=== PATIENT | female | born 2000 | race Caucasian/White ===

== ENCOUNTER 2018-04-27 20:12 | Inpatient (IN) | payer BC ==
[2018-04-27] MEDS ORDERED: NS 0.9% 1000 ML* 1,000 ML IV ONE (20:25)
--- NOTE | 2018-04-27 20:43 | ED ---
Substance Abuse/Use - HPI Summary HPI Summary: 18 year old F presenting to [facility] accompanied by female roommate s/p taking Advil 200 mg x20 19:00 today. Symptoms aggravated by school work and stress. Symptoms alleviated by nothing. She feels hot, confused, dizzy, fatigued, and numb. When asked if she is currently suicidal, patient explains that her "emotions are all over so it could be possible." Patient attends [employer] and is a sophomore. She considered withdrawing from school this semester due to having anxiety attacks every week from stress. She consistently sees a therapist at but is not on psychiatric medication. Patient has hx anxiety, hx SI, hx cutting. LNMP was 1 week ago. - History Of Current Complaint Chief Complaint: EDOverdose Stated Complaint: POSS OVERDOSE Time Seen by Provider: 04/27/18 20:27 Hx Obtained From: Patient Hx Last Menstrual Period: 04/20/18 ?: No Ingestion History: Type/Name Of Drug - Advil, Amount Ingested - 200 mg x20 Overdose Characteristics: Oral Aggravating Factor(s): Other - stress and schoolwork Alleviating Factor(s): Nothing Associated Signs And Symptoms: Other: - She feels hot, confused, dizzy, fatigued, and numb. When asked if she is currently suicidal, patient explains that her "emotions are all over so it could be possible." - Allergies/Home Medications Allergies/Adverse Reactions: Allergies Allergy/AdvReac Type Severity Reaction Status Date / Time No Known Allergies Allergy Verified 04/27/18 20:22 PMH/Surg Hx/FS Hx/Imm Hx Previously Healthy: No Respiratory History: Denies: Hx Asthma Psychiatric History: Reports: Hx Anxiety, Other Psychiatric Issues/Disorders - Hx non-suicidal self injury particularly cutting - Surgical History Surgery Procedure, Year, and Place: None Infectious Disease History: No Infectious Disease History: Denies: Traveled Outside the [place] in Last 30 Days - Family History Known Family History: Negative: Blood Disorder - Social History Alcohol Use: None Hx Substance Use: No Substance Use Type: Reports: None Hx Tobacco Use: No Smoking Status (MU): Never Smoked Tobacco Review of Systems Positive: Other - She feels hot, confused, dizzy, fatigued, and numb Positive: Other - When asked if she is currently suicidal, patient explains that her "emotions are all over so it could be possible." All Other Systems Reviewed And Are Negative: Yes Physical Exam - Summary Physical Exam Summary: Appearance: Well-appearing, Well-nourished, lying in bed comfortably Skin: Warm, dry, no obvious rash Eyes: sclera anicteric, no conjunctival pallor ENT: mucous membranes moist, pharynx appears normal Neck: Supple, nontender Respiratory: Clear to auscultation, no signs of respiratory distress Cardiovascular: Normal S1, S2. No murmurs. Normal distal pulses in tibial and radial bilaterally. Abdomen: Soft, nontender, normal active bowel sounds present Musculoskeletal: Normal, Strength/ROM Intact Neurological: A&Ox3, awake and alert, mentation is normal, speech is fluent and appropriate Psychiatric: affect is normal, does not appear anxious or depressed Triage Information Reviewed: Yes Vital Signs On Initial Exam: Initial Vitals Temp Pulse Resp BP Pulse Ox 98.6 F 92 16 144/89 99 04/27/18 20:17 04/27/18 20:17 04/27/18 20:17 04/27/18 20:17 04/27/18 20:17 Vital Signs Reviewed: Yes Diagnostics - Vital Signs Vital Signs Temp Pulse Resp BP Pulse Ox 04/27/18 20:17 98.6 F 92 16 144/89 99 - Laboratory Result Diagrams: 04/27/18 21:14 04/27/18 21:15 Lab Statement: Any lab studies that have been ordered have been reviewed, and results considered in the medical decision making process. - EKG 2056 Cardiac Rate: NL - 81 BPM EKG Rhythm: Sinus Rhythm Summary of EKG Findings: NSR at 81 BPM, P waves, QRS complex, and T waves are within normal limits, T waves and intervals are normal, no ischemic changes. This is a normal EKG Course/Dx - Course Course Of Treatment: 18 year old F presenting to [facility] accompanied by female roommate s/p taking Advil 200 mg x20 19:00 today. Patient notes recent stress from school work has been building up, making her feel suicidal. Patient given mental health evaluation, after which Dr. Su psychiatry feels that patient should be admitted. Patient is agreeable with admission plan per mental health level vial inspector. Patient will be admitted to psychiatric facility at [facility] - Diagnoses Provider Diagnoses: Depression, Suicide attempt Discharge - Sign-Out/Discharge Documenting (check all that apply): Patient Departure - Admit - Discharge Plan Condition: Stable Disposition: [facility]CHIATRIC FACILITY[facility] Referrals: No Primary Care Phys,NOPCP [Primary Care Provider] - - Attestation Statements Document Initiated by Scribe: Yes Documenting Scribe: Eliane Cross Provider For Whom Scribe is Documenting (Include Credential): Ortiz Santana MD Scribe Attestation: Eliane Tristan, scribed for Ortiz Santana MD on 04/28/18 at 0008. Status of Scribe Document: Ready
[2018-04-27 21:23] LABS: ABS Basophils 0 10^3/ul (0-0.2); ABS Eosinophils 0.1 10^3/ul (0-0.6); ABS Lymphocytes 1.7 10^3/ul (1.0-4.8); ABS Monocytes 0.9 10^3/ul (0-0.8); ABS Neutrophils 11.7 10^3/ul (1.5-7.7); ABS Nucleated RBC 0 10^3/ul; Eosinophil % 0.8 %; Hematocrit 40 % (35-47); Hemoglobin 13.5 g/dl (12.0-16.0); Lymphocyte % 11.6 %; Mean Corpuscular HGB Conc 34 g/dl (31-36); Mean Corpuscular Hemoglobin 34 pg (27-31); Mean Corpuscular Volume 98 fL (80-97); Mean Platelet Volume 7.8 fL (7.4-10.4); Nucleated Red Blood Cells % 0; Platelet Count 250 10^3/ul (150-450); Red Blood Count 4.04 10^6/ul (4.00-5.40); Red Cell Distribution Width 12 % (10.5-15); White Blood Count 14.4 10^3/ul (3.5-10.8)
[2018-04-27 21:35] LABS: Urine Appearance Cloudy; Urine Bacteria 2+ (Absent); Urine Bilirubin Negative (Negative); Urine Blood 1+ (Negative); Urine Color Straw; Urine Glucose Negative (Negative); Urine Ketones Negative (Negative); Urine Nitrite Negative (Negative); Urine Protein Negative (Negative); Urine Red Blood Cell 1+(3-5/hpf) (Absent); Urine Specific Gravity 1.004 (1.010-1.030); Urine Urobilinogen Negative (Negative); Urine White Blood Cell 3+(>20/hpf) (Absent)
[2018-04-27 21:39] LABS: Barbiturates Urine Screen None Detected (None Detect); Benzodiazepine Urine Screen None Detected (None Detect); Urine Cannabinoids Screen None Detected (None Detect)
[2018-04-27 21:40] LABS: ALT 8 U/L (7-52); AST 11 U/L (13-39); Albumin 4.3 g/dL (3.2-5.2); Alkaline Phosphatase 79 U/L (34-104); Anion Gap 8 mmol/L (2-11); BUN/Creatinine Ratio 13.2 (8-20); Blood Urea Nitrogen 9 mg/dL (6-24); CO2 Carbon Dioxide 29 mmol/L (22-32); Calcium 9.4 mg/dL (8.6-10.3); Chloride 104 mmol/L (101-111); EGFR Non-African American 110.3 (>60); Globulin 2.2 g/dL (2-4); Glucose 101 mg/dL (70-100); Potassium 3.7 mmol/L (3.5-5.0); Sodium 141 mmol/L (135-145); Total Protein 6.5 g/dL (6.4-8.9)
[2018-04-27 21:46] LABS: HCG Pregnancy < 0.60 mIU/mL
[2018-04-27 21:47] LABS: Acetaminophen < 15 mcg/mL; Alcohol < 10 mg/dL (<10); Salicylate < 2.50 mg/dL (<30)
[2018-04-28] MEDS ORDERED: Acetaminophen TAB* 325 MG PO PRN (02:29)
[2018-04-28] MEDS ORDERED: Al Hydrox/Mg Hydrox/Simet LIQ* 30 ML UDC PO PRN (02:29)
[2018-04-28] MEDS: Vitamin THERAPEUTIC TAB PO SCH (10:07)
[2018-04-28] MEDS ORDERED: GuaiFENesin DM* 5 ML UDC PO PRN (16:56)
--- NOTE | 2018-04-28 21:21 | HP ---
PSYCHIATRIC ADMISSION: DATE OF ADMISSION: 04/28/18 JUSTIFICATION FOR ADMISSION: The patient is in need of 24-hour supervision and care secondary to anthony cidal ideations with an attempt to end her life via overdose. CHIEF COMPLAINT: "I was going to check myself in anyway even before I did the overdose." HISTORY OF PRESENT ILLNESS: The patient is a 18-year-old single white female, who is a sophomore at [employer], who was brought to the emergency room by her roommate following an intentional overdo se on approximately 20 tablets of Advil Migraine, which includes 200 mg of ibuprofen, in an attempt t o end her life. The patient reported to ER staff that she feels incompetent in areas such as school and communication with others. She reports intrusive thoughts of self-hatred, saying "I just feel ou t of control with my emotions and my impulses, I'm tired of being subjected to this emotional pain an d I don't have a way to cope with it effectively." Although she denied any continued suicidal ideati on in our emergency room, she appeared to be depressed, fatigued, and unsafe, and for this reason, irene oliva was encouraged to accept a voluntary admission, which she did. When I meet with her, she indicates that she took the overdose on the evening prior to admission. She was feeling extreme anxiety in par ticular related to her schoolwork, saying that she is having weekly panic attacks. She has tried to finish the semester and was encouraged to do so by her stepbrother, who recently visited from her [facility] area. She feels ashamed like she has let her family down. The patient is doing estevan quately academically, although she does feel that she could be doing better were her anxiety and depr ession under better control. Other stressors include her lack of relationships and difficulty making friends due to social anxiety and poor self-esteem. She tends to worry a great deal about things li ke schoolwork and often feels uncomfortable with others. She states that she has had passive suicida l ideations almost every day for several weeks, but had no plans or actual intentions of harming hers elf until the overdose occurred last night. Symptomatically, she is denying any difficulty sleeping; however, she does endorse anhedonia, guilt, poor energy, concentration problems, appetite disturbance , psychomotor retardation, and passive suicidal ideations. She denies any psychotic or manic experie nces. PAST PSYCHIATRIC HISTORY: The patient denies ever being psychiatrically hospitalized. She does stat e that she has been in therapy several times both in her [facility] as well as at [facility] through the [facility]. Currently, on campus, she sees a therapist, named Paul Ayala. The patient was started in the spring on a trial of sertraline by Dr. Stroud at [facility]. This was titrated up to 100 mg and she was on it a total of 6 months, but did not feel t hat she got much benefit and her sikh conservative father encouraged her to discontinue it. She denies any history of abuse or neglect growing up. She denies any history of traumatic brain injury . SUBSTANCE ABUSE HISTORY: Significant for social alcohol and occasional marijuana, although she denie s any history of other illicit drugs and denies use of tobacco products. PAST MEDICAL HISTORY: Noncontributory. ALLERGIES: She has no known drug allergies. FAMILY HISTORY: Significant for a mother that has been diagnosed with schizophrenia, a maternal half -sister with major depressive disorder, a paternal grandmother with anxiety, and a paternal great-unc le who recently of suicide. SOCIAL HISTORY: The patient was born and raised in the suburb of [place]. Her parents were janell clark together and she was raised mostly by her father and her stepmother, although she had fairly frequent visitation with her mother. She does have a half-sister on her mother's side who is in her early 30s as well as a stepbrother through her step-mom with whom she is quite close. The patient i s a high-school graduate and is currently a sophomore at [employer] studying both Mongolian and psy chology and her grades are mostly B's and A's. Her hobbies include arts, crafts, and running. Curre ntly, she is single, although she is sexually active with a male partner. She denies any history of sexually transmitted diseases. The patient is not sikh indicating that she was raised Yazidism, but has left that sukumar. She is denying any significant legal history. REVIEW OF SYSTEMS: The patient states that she has a recent upper respiratory tract infection and e is requesting cough or cold medicine. Other than this, she denies headache or double vision. She denies sore throat, cough, chest pain, difficulty breathing. Denies abdominal pain, nausea, vomiting , diarrhea, or constipation. Denies difficulty ambulating, enlarged lymph nodes, fevers, changes in weight. PHYSICAL EXAMINATION VITAL SIGNS: Blood pressure 119/76, heart rate 83, respiratory rate 16, temperature is 98.5 degrees Fahrenheit, oxygen saturations are 99% on room air. HEENT: Head is normocephalic, atraumatic. NECK: Supple. CHEST: Clear to auscultation bilaterally. CARDIAC: Reveals normal heart sounds. ABDOMEN: Soft and nontender. MUSCULOSKELETAL: Reveals no sign of edema. NEUROLOGICAL: She is grossly intact with no focal deficits. SKIN: Warm and dry. MENTAL STATUS EXAM: The patient is a young, somewhat slender white female with blondish hair, fair grooming. I note that she has a nose ring. She is clean and well groomed, dressed in a black T-eduardo t with a blue flannel over it and jeans on. She has a somewhat slouched posture. Speech is slow, but fluent. Mood is depressed with a constricted affect. Thought process is linear and goal directed. Thought content is significant for feeling upset about letting her family down. She denies current fong icidal or homicidal ideations. She denies auditory or visual hallucinations. Insight and judgment a re fair given her willingness to sign in to the hospital on a voluntary basis. Cognitively, she is a wake and alert with what would appear to be an average intellect. LABORATORY DATA: CBC reveals slightly elevated white blood cell count at 14.4. CMP reveals glucose s lightly elevated at 101. Beta hCG is negative. Urinalysis reveals 3+ leukocyte esterase, 3+ white b lood cells, 2+ bacteria. Urine drug screen is negative for all substances tested. DIAGNOSES: [place] I: Major depressive disorder, recurrent, severe, without psychotic features; genera lized anxiety disorder; rule out social anxiety disorder. [place] II: Rule out avoidant personality tra its. ASSESSMENT: The patient is a 18-year-old single white female, who is a sophomore at [employer], who was brought to the hospital by her roommate after it was discovered that she overdosed purposely on 20 tablets of Advil Migraine medicine in an attempt to harm herself. She does meet criteria for m ajor depressive disorder and generalized anxiety disorder and she is agreeable to a trial of medicati on and further inpatient treatment. PLAN: The patient is admitted to the adult behavioral health unit where she is placed on q.15-minute checks for her own safety. I note that she does have a urinary tract infection for which we will st art an empirical trial of Bactrim double strength twice daily. We will also start her on a trial of Effexor XR 37.5 mg every morning and titrate that to efficacy. We will be reaching out to [facility] to involve their crisis management services and it is uncertain at this time whether the patient will need accommodations to complete the semester versus taking a medical leave of absence. At any rate, while she is here, she is certainly encouraged to avail herself of all milieu activities includ ing individual and group psychotherapies. We will likely reach out to her family to see if they woul d be willing to be involved in her treatment. [id number]/[facility] #: [id number]
[2018-04-28] MEDS: Sulfamethox/Trimethoprim DS 800/160* TAB PO SCH (21:27)
[2018-04-28] MEDS: hydrOXYzine HCL TAB* 50 MG PO PRN (21:27)
[2018-04-29 07:38] LABS: HDL Cholesterol 40.5 mg/dL
[2018-04-29] MEDS: Venlafaxine EXT RELEASE CAP* 37.5 MG PO SCH (09:26)
[2018-04-29] MEDS: Sulfamethox/Trimethoprim DS 800/160* TAB PO SCH ×2 (09:26→21:21)
[2018-04-29] MEDS: Vitamin THERAPEUTIC TAB PO SCH (09:27)
[2018-04-29] MEDS: hydrOXYzine HCL TAB* 50 MG PO PRN (21:21)
[2018-04-30] MEDS: Venlafaxine EXT RELEASE CAP* 37.5 MG PO SCH (08:56)
[2018-04-30] MEDS: Vitamin THERAPEUTIC TAB PO SCH (08:56)
[2018-04-30] MEDS: Sulfamethox/Trimethoprim DS 800/160* TAB PO SCH ×2 (08:56→20:47)
--- NOTE | 2018-04-30 15:42 | PN ---
Subjective - Subjective Date of Service: 04/30/18 Service Type: 73001 Hosp care 15 min low complexity Subjective: Guevara complains of some mild fuzziness with venlafaxine, however, she states that she had a similar initial reaction to sertraline and tolerated it well after a little time on the medication, so she' not worried about how she'll do on Effexor. She reports that her father and step-mother have been more supportive than she anticipated. "They took it hard yesterday when I first called them but then my dad called back today and he said he wanted whatever was best for my health." The patient denies SI currently. She awaits meeting the unit psychosocial rehabilitation counselor so that she can request referral to [facility] [facility] [facility]'s Crisis Management service in order to straighten out the details of taking an anticipated medical leave of absence from school. She looking for a new therapist in the [place], [place] area, where she will return to live with her father. Objective - Appearance Appearance: Well Developed/Nourished Dysmorphic Features: No Hygiene: Normal Grooming: Well Kept - Behavior Psychomotor Activities: Normal Exhibits Abnormal Movement: No - Attitude and Relatedness Attitude and Relatedness: Cooperative Eye Contact: Fair - Speech Quality: Unpressured Latencies: Normal Quantity: Appropriate - Mood Patient's Decription of Mood: "Sad" - Affect Observed Affect: Constricted Affect Consistent with: Dysphoria - Thought Process Patient's Thought Process: Coherent Thought Content: No Passive Wish, No Suicidal Planning, No Homicidal Ideation, No Paranoid Ideation - Sensorium Experiencing Hallucinations: No, Sensorium is Clear Type of Hallucinations: Visual: No, Auditory: No, Command: No - Level of Consciousness Level of Consciousness: Alert Orientation: Yes Intact, Yes Orientated to Time, Yes Orientated to Place, Yes Orientated to Person - Impulse Control Impulse Control: Intact - Insight and Judgement Insight and Judgement: Good - Group Participation Particating in Group Activities: Yes - Medication Management Medication Management Adherence: Yes Assessment - Assessment Merits Inpatient Hospitalization: For Immediate Safety, For Stabilization Inpatient DSM-V Dx: F33.2 Clinical Impression: 18 y.o. single, white female sophomore at [employer] brought in voluntarily by a friend following an intentional, suicidal overdose on approximately 20 tablets of Advil migraine medicine. MHU: Problem List - Patient Problems (1) Major depressive disorder, recurrent severe without psychotic features Current Visit: Yes Status: Acute Priority: High Code(s): F33.2 - MAJOR DEPRESSV DISORDER, RECURRENT SEVERE W/O PSYCH FEATURES SNOMED Code(s): 21823014 Plan - Plan Treatment Plan: Name: GUEVARA ANTONIO Birthdate: 2000 [id number] We have started a trial of venlafaxine 37.5mg PO qam. Will increase this to 75mg starting tomorrow. Patient to work with [employer]. Continue inpatient treatment. Continued Medication Management: Start Medication Medications: Current Medications Acetaminophen (Tylenol Tab*) 650 mg PO Q4H PRN PRN Reason: PAIN or TEMP > 101 F Last Admin: 04/28/18 21:26 Dose: 650 mg Al Hydrox/Mg Hydrox/Simethicone (Maalox Plus*) 30 ml PO Q4H PRN PRN Reason: INDIGESTION Guaifenesin/Dextromethorphan (Robitussin Dm*) 10 ml PO Q6H PRN PRN Reason: COUGH Last Admin: 04/29/18 22:48 Dose: 10 ml Hydroxyzine HCl (Atarax Tab*) 50 mg PO Q6H PRN PRN Reason: ANXIETY Last Admin: 04/29/18 21:21 Dose: 50 mg Multivitamins (Theragran Tab*) 1 tab PO DAILY [facility] Last Admin: 04/30/18 08:56 Dose: 1 tab Trimethoprim/Sulfamethoxazole (Bactrim Ds 800/160 Tab*) 1 tab PO BID [facility] Last Admin: 04/30/18 08:56 Dose: 1 tab Venlafaxine HCl (Effexor Xr Cap*) 75 mg PO DAILY [facility] - Discharge Plan Discharge Plan: Inpatient Hospitalization Lab Results - Lab Results Lab Results: 04/27/18 04/27/18 04/27/18 21:14 21:14 21:14 WBC 14.4 H RBC 4.04 Hgb 13.5 Hct 40 MCV 98 H MCH 34 H MCHC 34 RDW 12 Plt Count 250 MPV 7.8 Neut % (Auto) 81.4 Lymph % (Auto) 11.6 [place] % (Auto) 6.0 Eos % (Auto) 0.8 Baso % (Auto) 0.2 Absolute Neuts (auto) 11.7 H Absolute Lymphs (auto) 1.7 Absolute Monos (auto) 0.9 H Absolute Eos (auto) 0.1 Absolute Basos (auto) 0 Absolute Nucleated RBC 0 Nucleated RBC % 0 Sodium Potassium Chloride Carbon Dioxide Anion Gap BUN Creatinine Est GFR ( Amer) Est GFR (Non-Af Amer) BUN/Creatinine Ratio Glucose Hemoglobin A1c Lactic Acid 1.5 Calcium Total Bilirubin AST ALT Alkaline Phosphatase Total Protein Albumin Globulin Albumin/Globulin Ratio Triglycerides Cholesterol LDL Cholesterol HDL Cholesterol Beta HCG, Quant Urine Color Straw Urine Appearance Cloudy Urine pH 7.0 Ur Specific [place] 1.004 L Urine Protein Negative Urine Ketones Negative Urine Blood 1+ A Urine Nitrate Negative Urine Bilirubin Negative Urine Urobilinogen Negative Ur Leukocyte Esterase 3+ A Urine WBC (Auto) 3+(>20/hpf) A Urine RBC (Auto) 1+(3-5/hpf) A Ur Squamous Epith Cells Present A Urine Bacteria 2+ A Urine Glucose Negative Salicylates Urine Opiates Screen Acetaminophen Ur Barbiturates Screen Ur Phencyclidine Scrn Ur Amphetamines Screen U Benzodiazepines Scrn Urine Cocaine Screen U Cannabinoids Screen Serum Alcohol 04/27/18 04/27/18 04/29/18 21:14 21:15 07:05 WBC RBC Hgb Hct MCV MCH MCHC RDW Plt Count MPV Neut % (Auto) Lymph % (Auto) [place] % (Auto) Eos % (Auto) Baso % (Auto) Absolute Neuts (auto) Absolute Lymphs (auto) Absolute Monos (auto) Absolute Eos (auto) Absolute Basos (auto) Absolute Nucleated RBC Nucleated RBC % Sodium 141 Potassium 3.7 Chloride 104 Carbon Dioxide 29 Anion Gap 8 BUN 9 Creatinine 0.68 Est GFR ( Amer) 133.5 Est GFR (Non-Af Amer) 110.3 BUN/Creatinine Ratio 13.2 Glucose 101 H Hemoglobin A1c Lactic Acid Calcium 9.4 Total Bilirubin 0.30 AST 11 L ALT 8 Alkaline Phosphatase 79 Total Protein 6.5 Albumin 4.3 Globulin 2.2 Albumin/Globulin Ratio 2.0 Triglycerides 147 Cholesterol 153 LDL Cholesterol 83 HDL Cholesterol 40.5 Beta HCG, Quant < 0.60 Urine Color Urine Appearance Urine pH Ur Specific [place] Urine Protein Urine Ketones Urine Blood Urine Nitrate Urine Bilirubin Urine Urobilinogen Ur Leukocyte Esterase Urine WBC (Auto) Urine RBC (Auto) Ur Squamous Epith Cells Urine Bacteria Urine Glucose Salicylates < 2.50 Urine Opiates Screen None detected Acetaminophen < 15 Ur Barbiturates Screen None detected Ur Phencyclidine Scrn None detected Ur Amphetamines Screen None detected U Benzodiazepines Scrn None detected Urine Cocaine Screen None detected U Cannabinoids Screen None detected Serum Alcohol < 10 04/29/18 07:05 WBC RBC Hgb Hct MCV MCH MCHC RDW Plt Count MPV Neut % (Auto) Lymph % (Auto) [place] % (Auto) Eos % (Auto) Baso % (Auto) Absolute Neuts (auto) Absolute Lymphs (auto) Absolute Monos (auto) Absolute Eos (auto) Absolute Basos (auto) Absolute Nucleated RBC Nucleated RBC % Sodium Potassium Chloride Carbon Dioxide Anion Gap BUN Creatinine Est GFR ( Amer) Est GFR (Non-Af Amer) BUN/Creatinine Ratio Glucose Hemoglobin A1c 4.6 Lactic Acid Calcium Total Bilirubin AST ALT Alkaline Phosphatase Total Protein Albumin Globulin Albumin/Globulin Ratio Triglycerides Cholesterol LDL Cholesterol HDL Cholesterol Beta HCG, Quant Urine Color Urine Appearance Urine pH Ur Specific [place] Urine Protein Urine Ketones Urine Blood Urine Nitrate Urine Bilirubin Urine Urobilinogen Ur Leukocyte Esterase Urine WBC (Auto) Urine RBC (Auto) Ur Squamous Epith Cells Urine Bacteria Urine Glucose Salicylates Urine Opiates Screen Acetaminophen Ur Barbiturates Screen Ur Phencyclidine Scrn Ur Amphetamines Screen U Benzodiazepines Scrn Urine Cocaine Screen U Cannabinoids Screen Serum Alcohol
[2018-05-01] MEDS: Venlafaxine EXT RELEASE CAP* 37.5 MG PO SCH (08:39)
[2018-05-01] MEDS: Sulfamethox/Trimethoprim DS 800/160* TAB PO SCH ×2 (08:39→21:02)
[2018-05-01] MEDS: Vitamin THERAPEUTIC TAB PO SCH (09:47)
[2018-05-01] MEDS ORDERED: Zolpidem TAB* 5 MG PO PRN (12:30)
--- NOTE | 2018-05-01 12:38 | PN ---
Subjective - Subjective Date of Service: 05/01/18 Service Type: 46497 Hosp care 25 min moderate complexity Subjective: Guevara discusses her social anxiety, which has limited her ability to make friends and build supports here in [place]. She denies SI today but still feels a little fuzzy from the venlafaxine. She is participating well in the groups and we note that she is not particularly avoidant of peers. "That's because I know I'll never see these people again." Objective - Appearance Appearance: Well Developed/Nourished Dysmorphic Features: No Hygiene: Normal Grooming: Well Kept - Behavior Psychomotor Activities: Normal Exhibits Abnormal Movement: No - Attitude and Relatedness Attitude and Relatedness: Cooperative Eye Contact: Fair - Speech Quality: Unpressured Latencies: Normal Quantity: Appropriate - Mood Patient's Decription of Mood: "Sad" - Affect Observed Affect: Constricted Affect Consistent with: Dysphoria - Thought Process Patient's Thought Process: Coherent Thought Content: No Passive Wish, No Suicidal Planning, No Homicidal Ideation, No Paranoid Ideation - Sensorium Experiencing Hallucinations: No, Sensorium is Clear Type of Hallucinations: Visual: No, Auditory: No, Command: No - Level of Consciousness Level of Consciousness: Alert Orientation: Yes Intact, Yes Orientated to Time, Yes Orientated to Place, Yes Orientated to Person - Impulse Control Impulse Control: Tenuous - Insight and Judgement Insight and Judgement: Fair - Group Participation Particating in Group Activities: Yes - Medication Management Medication Management Adherence: Yes Assessment - Assessment Merits Inpatient Hospitalization: For Immediate Safety, For Stabilization Inpatient DSM-V Dx: F33.2 Clinical Impression: 18 y.o. 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 MHU: Problem List - Patient Problems (1) Major depressive disorder, recurrent severe without psychotic features Current Visit: Yes Status: Acute Priority: High Code(s): F33.2 - MAJOR DEPRESSV DISORDER, RECURRENT SEVERE W/O PSYCH FEATURES SNOMED Code(s): 96879956 Plan - Plan Treatment Plan: Name: GUEVARA ANTONIO Birthdate: 2000 [id number] We have started a trial of venlafaxine 75mg PO qam. Will add Ambien 5mg PO qhs as prn for sleep. Patient to work with [employer]. Conference call with her father and step-mother on (05/03) at 13:30. Continue inpatient treatment. Continued Medication Management: Start Medication Medications: Current Medications Acetaminophen (Tylenol Tab*) 650 mg PO Q4H PRN PRN Reason: PAIN or TEMP > 101 F Last Admin: 04/28/18 21:26 Dose: 650 mg Al Hydrox/Mg Hydrox/Simethicone (Maalox Plus*) 30 ml PO Q4H PRN PRN Reason: INDIGESTION Guaifenesin/Dextromethorphan (Robitussin Dm*) 10 ml PO Q6H PRN PRN Reason: COUGH Last Admin: 04/29/18 22:48 Dose: 10 ml Hydroxyzine HCl (Atarax Tab*) 50 mg PO Q6H PRN PRN Reason: ANXIETY Last Admin: 04/29/18 21:21 Dose: 50 mg Multivitamins (Theragran Tab*) 1 tab PO DAILY [facility] Last Admin: 05/01/18 09:47 Dose: 1 tab Trimethoprim/Sulfamethoxazole (Bactrim Ds 800/160 Tab*) 1 tab PO BID [facility] Last Admin: 05/01/18 08:39 Dose: 1 tab Venlafaxine HCl (Effexor Xr Cap*) 75 mg PO DAILY [facility] Last Admin: 05/01/18 08:39 Dose: 75 mg - Discharge Plan Discharge Plan: Inpatient Hospitalization
[2018-05-02] MEDS: Sulfamethox/Trimethoprim DS 800/160* TAB PO SCH ×2 (09:29→22:03)
[2018-05-02] MEDS: Venlafaxine EXT RELEASE CAP* 37.5 MG PO SCH (09:29)
[2018-05-02] MEDS: Vitamin THERAPEUTIC TAB PO SCH (09:29)
--- NOTE | 2018-05-02 13:52 | PN ---
Subjective - Subjective Date of Service: 05/02/18 Service Type: [id number] Hosp care 15 min low complexity Subjective: Caridad feels better and continues to deny SI. Her father and step-mother are agreeable to a phone family conference tomorrow afternoon and the patient is requesting discharge thereafter. She is tolerating the venlafaxine well but continues to have trouble sleeping on the unit. She requests resumption of melatonin, which she takes on an outpatient basis. The patient's plan is to stay tomorrow night in her dorm at [employer] with her roommate Estefanía. Her parents can then pick her up on Monday (05/04) and drive her home to [place], where they live. She has taken a medical leave of absence from college to give her a chance to get well. Objective - Appearance Appearance: Well Developed/Nourished Dysmorphic Features: No Hygiene: Normal Grooming: Well Kept - Behavior Psychomotor Activities: Normal Exhibits Abnormal Movement: No - Attitude and Relatedness Attitude and Relatedness: Cooperative Eye Contact: Good - Speech Quality: Unpressured Latencies: Normal Quantity: Appropriate - Mood Patient's Decription of Mood: "Good" - Affect Observed Affect: Good Affect Consistent with: Euthymia - Thought Process Patient's Thought Process: Coherent Thought Content: No Passive Wish, No Suicidal Planning, No Homicidal Ideation, No Paranoid Ideation - Sensorium Experiencing Hallucinations: Yes Type of Hallucinations: Visual: No, Auditory: No, Command: No - Level of Consciousness Level of Consciousness: Alert Orientation: Yes Intact, Yes Orientated to Time, Yes Orientated to Place, Yes Orientated to Person - Impulse Control Impulse Control: Intact - Insight and Judgement Insight and Judgement: Good - Group Participation Particating in Group Activities: Yes - Medication Management Medication Management Adherence: Yes Assessment - Assessment Merits Inpatient Hospitalization: Consolidate Improvements, Pending Safe DC Plan Inpatient DSM-V Dx: F33.2 Clinical Impression: 18 y.o. 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 MHU: Problem List - Patient Problems (1) Major depressive disorder, recurrent severe without psychotic features Current Visit: Yes Status: Acute Priority: High Code(s): F33.2 - MAJOR DEPRESSV DISORDER, RECURRENT SEVERE W/O PSYCH FEATURES SNOMED Code(s): 25255826 Plan - Plan Treatment Plan: Name: CARIDAD ANTONIO Birthdate: 2000 [id number] We have started a trial of venlafaxine 75mg PO qam. Will add melatonin 3mg PO qhs as prn for sleep. Patient to work with [employer]. Conference call with her father and step-mother on (05/03) at 13:30. Continue inpatient treatment. Continued Medication Management: Start Medication Medications: Current Medications Acetaminophen (Tylenol Tab*) 650 mg PO Q4H PRN PRN Reason: PAIN or TEMP > 101 F Last Admin: 04/28/18 21:26 Dose: 650 mg Al Hydrox/Mg Hydrox/Simethicone (Maalox Plus*) 30 ml PO Q4H PRN PRN Reason: INDIGESTION Guaifenesin/Dextromethorphan (Robitussin Dm*) 10 ml PO Q6H PRN PRN Reason: COUGH Last Admin: 04/29/18 22:48 Dose: 10 ml Hydroxyzine HCl (Atarax Tab*) 50 mg PO Q6H PRN PRN Reason: ANXIETY Last Admin: 04/29/18 21:21 Dose: 50 mg Melatonin (Melatonin) 3 mg PO BEDTIME [facility]; Protocol Multivitamins (Theragran Tab*) 1 tab PO DAILY [facility] Last Admin: 05/02/18 09:29 Dose: 1 tab Trimethoprim/Sulfamethoxazole (Bactrim Ds 800/160 Tab*) 1 tab PO BID [facility] Last Admin: 05/02/18 09:29 Dose: 1 tab Venlafaxine HCl (Effexor Xr Cap*) 75 mg PO DAILY [facility] Last Admin: 05/02/18 09:29 Dose: 75 mg Zolpidem Tartrate (Ambien Tab*) 5 mg PO BEDTIME PRN PRN Reason: INSOMNIA - Discharge Plan Discharge Plan: Outpatient Follow Up
--- NOTE | 2018-05-02 16:41 | PN ---
MHU: Group Therapy Note - Service Type Service Type: 63651 Group Psychotherapy - Medication Education Group: Patient was attentive and participatory in group, and remained in good behavioral control. Patient expressed positive insights regarding relevant treatment interventions. Patient stated understanding of material discussed and had appropriate questions.
[2018-05-02] MEDS ORDERED: Melatonin 3 MG TAB PO SCH (21:00)
[2018-05-03] MEDS: Sulfamethox/Trimethoprim DS 800/160* TAB PO SCH (09:04)
[2018-05-03] MEDS: Venlafaxine EXT RELEASE CAP* 37.5 MG PO SCH (09:04)
[2018-05-03] MEDS: Vitamin THERAPEUTIC TAB PO SCH (09:05)
[2018-05-03 09:07] VITALS: BP 130/86
--- NOTE | 2018-05-04 16:52 | DS ---
DISCHARGE SUMMARY: DATE OF ADMISSION: 04/28/18 DATE OF DISCHARGE: 05/03/18 DISCHARGE DIAGNOSES: [place] I: Major depressive disorder, recurrent, severe, without psychotic features. Social anxiety disorder. CONDITION AT THE TIME OF DISCHARGE: Stable. The patient has denied suicidal ideations throughout her experience here. She is tolerating her medication quite well and eager to continue treatment in the outpatient setting. She has been extremely active on our milieu, being social with peers, going to groups, expressing strong desire to get well. I have spoken with both her father, Kit and her stepmother, Jad, who voiced support and concern. They are both agreeable with the discharge plan and in fact they have come from [place] to pick Caridad up and take her home for the holiday season. My understanding is that Caridad will be taking a medical leave from school at [employer] and her parents are supportive of that as well. At this time, Caridad is denying any thoughts of self-harm. She feels good about her future and she is requesting to be discharged from the hospital. I do not see any medical legal rationale for keeping her on an inpatient setting. Her followups have been made for the [facility] and she is discharged in good condition. MENTAL STATUS EXAMINATION: At the time of discharge, the patient is a young, somewhat slender, white female with blondish hair, fair grooming. I note that she has a nose ring. She is clean and well groomed, dressed in a blue flannel shirt with jeans. She has a good posture. Speech is fluent with a normal rate , tone, and volume. Mood is euthymic with a full affect. Thought process is linea and goal directed. Thought content is significant for her desire to be discharged from the hospital. She is denying suicidal or homicidal ideation. She denies auditory or visual hallucinations. Insight and judgment are fair given her willingness to follow up in the community. Cognitively, she is awake and alert with what would appear to be an average intellect. DISCHARGE INSTRUCTIONS TO THE PATIENT: As follows: A. Medications: 1. She is being discharged on a trial of Effexor XR 75 mg p.o. q.a.m. 2. In addition, she takes melatonin 5 mg p.o. q.h.s. B. Diet is regular. C. Activities: As tolerated. The patient is a nonsmoker. There are no laboratory or diagnostic studies pending at the time of discharge. D. Followup care: The patient will be following up with her primary overnight caregiver that is Dr. Irma Lopez, who is a doctor of osteopathy. That appointment is established for 05/16/18 at 12 p.m. In addition, she is to follow up with her therapist in [place], a psychologist named Elsy Steele. That appointment is for 05/05/18 at 1:30 p.m. E. Substance abuse followup is nonapplicable. HOSPITAL COURSE: Part A: Reason for admission: The patient is a 18-year-old single white female, who is a sophomore at [employer], who was brought into the emergency room by her roommate following an intentional overdose on approximately 20 tablets of Advil Migraine, which includes 20 mg of ibuprofen per tablet, in an attempt to end her life. The patient reported to ER staff that she feels incompetent in areas such as school and communication with others. She reports intrusive thoughts of self- hatred, saying "I just feel out of control with my emotions and my impulses, I'm tired of being subjected to this emotional pain and I don't have a way to cope with it effectively." Although she denied any continued suicidal ideation in our emergency room, she appeared to be depressed, fatigued, and unsafe, and for this reason, she was encouraged to accept a voluntary admission, which she did. When I met with her , she indicated that she took the overdose on the evening prior to admission. She was feeling extreme anxiety in particular related to her schoolwork, saying that she is having weekly panic attacks. She has tried to finish the semester and was encouraged to do so by her stepbrother, who recently visited from her [place]. She feels ashamed like she has let her family down. The patient is doing adequately academically, although she does feel that she could be doing better with her anxiety and depression under better control. Other stressors include her lack of relationships and difficulty making friends due to social anxiety and poor self-esteem. She tends to worry a great deal about things like schoolwork and often feels uncomfortable with others. She states that she has had passive suicidal ideations almost every day for several weeks, but no plan or actual intentions of harming herself until the overdose occurred last night. Symptomatically, she is denying any difficulty sleeping; however, she does endorse anhedonia, guilt, poor energy, concentration problems , appetite disturbance, psychomotor retardation, and passive suicidal ideations. She denies any psychotic or manic experiences. Part B: Psychiatric treatment rendered: The patient was admitted to the adult behavioral health unit where she was placed on q.15-minute checks for her own safety. As we got to know her better and it was clear that her suicidal ideations had completely resolved, we extended her privileges such that she was only checked every 30 minutes and could use the computer and go outside on breaks. We were able to connect with her parents, her father, Kit and stepmother, Jad, who voiced support and were agreeable to coming to pick her up and take her directly home. We also reached out to [employer], who confirmed that the patient is already on a medical leave of absence. In addition, we started her on a trial of venlafaxine XR initially at 37.5 mg, but titrated to the effective dose of 75 mg once per morning. The patient tolerated this well and is agreeable to continuing this. We also are giving her a little bit of melatonin at night to help with sleep. At this time, the patient is requesting discharge, feeling much better and has a followup with her therapist in [place] as well as with her primary care provider at home. She is grateful for the services she received here and we feel like the patient is doing significantly better. [id number]/[facility] #: [id number] EMMA
== END 2018-05-03 17:21 | disposition home or self-care (01) | DRG 751 ==
LOC: ED 20:12 → BSU 04-28 00:11
PROVIDERS: ADMIT Psychiatry & Neurology Psychiatry; ATTEND Psychiatry & Neurology Psychiatry
PROC: GZHZZZZ Group Psychotherapy (ICD-10-PCS; principal; 2018-05-03)
DX: F33.2 Major depressive disorder, recurrent severe without psychotic features (principal); F41.1 Generalized anxiety disorder; T39.312A Poisoning by propionic acid derivatives, intentional self-harm, initial encounter; Y92.9 Unspecified place or not applicable; Z72.89 Other problems related to lifestyle; Z81.8 Family history of other mental and behavioral disorders
CPT/HCPCS: 36415; 80053; 80061; 80307; 80320; 80329; 81003; 81015; 83036; 83605; 84702; 85025; 87086; 90853; 93005; 99222; 99231; 99232; 99238; 99285; A9270-GY; G0480